=== PATIENT | female | born 1995 | race Caucasian/White ===

== ENCOUNTER 2016-07-28 19:29 | Emergency (ER) | payer BC ==
[2016-07-28] MEDS ORDERED: Famotidine IV* 10 MG/ML 2 ML (20 mg) IV ONE (19:35)
[2016-07-28] MEDS ORDERED: methylPREDNISolone 125 MG* 2 ML VIAL IV ONE (19:35)
[2016-07-28] MEDS ORDERED: diPHENhydraMINE IV* 50 MG/ML 1 ml VIAL (BENADRYL) IV ONE (19:35)
[2016-07-28] MEDS ORDERED: NS 0.9% 1000 ML* 1,000 ML IV SCH (19:45)
[2016-07-28] MEDS ORDERED: Famotidine TAB* 20 MG PO ONE (21:34)
[2016-07-28] MEDS ORDERED: predniSONE TAB* 20 MG PO ONE (21:34)
--- NOTE | 2016-07-28 21:42 | ED ---
Latasha Morgan Salem, scribed for Arya Farrell MD on 07/28/16 at 1951 . Allergic Reaction/Systemic - HPI Summary HPI Summary: Patient is a 20 y/o female who presents to the ED per EMS s/p an allergic reaction to peanuts at approximately 1700. She reports hives, dyspnea, and near syncope beginning around 1800. She states she took 20mL of Benadryl with little alleviation and then received an epinephrine injected into her right leg. EMS denies giving pt any additional medication on route. - History of Current Complaint Chief Complaint: EDAllergicReaction Time Seen by Provider: 07/28/16 19:31 Hx Obtained From: Patient, EMS Onset/Duration: Gradual Onset, Started hours ago, Still Present Timing: Constant Severity Initially: Moderate Severity Currently: Moderate Pain Intensity: 0 Pain Scale Used: 0-10 Numeric Location: Diffuse Character: Swelling, Hives Aggravating Factor(s): Other - Peanuts. Alleviating Factor(s): Antihistamines, Epinephrine Associated Signs And Symptoms: Positive: Negative - Allergies/Home Medications Allergies/Adverse Reactions: Allergies Allergy/AdvReac Type Severity Reaction Status Date / Time Peanut Oil Allergy Anaphylatic Verified 07/28/16 20:03 Shock Peanut-containing Drug Allergy Anaphylatic Verified 07/28/16 20:03 Products Shock chick peas Allergy Hives Uncoded 07/28/16 20:03 peas Allergy Hives Uncoded 07/28/16 20:03 PMH/Surg Hx/FS Hx/Imm Hx Previously Healthy: Yes Infectious Disease History: No Infectious Disease History: Denies: Traveled Outside the [place] in Last 30 Days - Family History Known Family History: Positive: Other - Asthma. - Social History Alcohol Use: None Hx Substance Use: No Substance Use Type: Reports: None Hx Tobacco Use: No Smoking Status (MU): Never Smoked Tobacco Review of Systems Positive: Other - Hives. . Negative: Fever Neurological: Other - Near syncope. All Other Systems Reviewed And Are Negative: Yes Physical Exam Triage Information Reviewed: Yes Vital Signs On Initial Exam: Initial Vitals Temp Pulse Resp BP Pulse Ox 99.0 F 98 15 123/73 100 07/28/16 19:42 07/28/16 19:42 07/28/16 19:42 07/28/16 19:42 07/28/16 19:42 Vital Signs Reviewed: Yes Appearance: Positive: Well-Appearing, No Pain Distress Skin: Positive: Warm, Skin Color Reflects Adequate Perfusion, Dry Head/Face: Positive: Normal Head/Face Inspection Eyes: Positive: EOMI, DIMPLE ENT: Positive: Normal ENT inspection Neck: Positive: Supple, Nontender Respiratory/Lung Sounds: Positive: Clear to Auscultation, Breath Sounds Present Cardiovascular: Positive: RRR Abdomen Description: Positive: Nontender, Soft Bowel Sounds: Positive: Present Musculoskeletal: Positive: Normal, Strength/ROM Intact Neurological: Positive: Normal, Sensory/Motor Intact, Alert, Oriented to Person Place, Time Psychiatric: Positive: Affect/Mood Appropriate Diagnostics - Vital Signs Vital Signs Temp Pulse Resp BP Pulse Ox 07/28/16 19:42 99.0 F 98 15 123/73 100 - Laboratory Lab Statement: Any lab studies that have been ordered have been reviewed, and results considered in the medical decision making process. Re-Evaluation - Re-Evaluation First Eval Re-Evaluation Time: 21:02 Change: Improved Comment: Pt states she feels good. Second Eval Re-Evaluation Time: 21:35 Comment: Informed pt of plan. Allergic Reaction Course/Dx - Course Course Of Treatment: NO CRITICAL CARE TIME Assessment/Plan: WELL IN ED. DISCHARGE HOME STABLE. - Diagnoses Provider Diagnoses: Allergic reaction Discharge - Discharge Plan Condition: Stable Disposition: HOME Prescriptions: Epinephrine [Epipen 2-Honorio] 0.3 mg IM ONCE PRN #1 inj PRN Reason: Allergy Symptoms Famotidine TAB* [Pepcid 20 MG TAB*] 20 mg PO BID PRN #8 tab PRN Reason: Allergy Symptoms predniSONE TAB* [Deltasone TAB*] 40 mg PO DAILY PRN #8 tab PRN Reason: Allergy Symptoms Patient Education Materials: Anaphylaxis (ED), General Allergic Reaction (ED) Referrals: [facility] [Primary Care Provider] - Additional Instructions: FOLLOW UP WITH MEERA. TAKE BENADRYL 50MG EVERY 6 HOURS NEEDED. TAKE PEPCID AND PREDNISONE DIRECTED NEEDED. RETURN TO THE EMERGENCY DEPARTMENT FOR ANY WORSENING OF YOUR CONDITION; DIFFICULTY SWALLOWING OR BREATHING, YOU FEEL ILL OR QUESTIONS OR CONCERNS. The documentation as recorded by the Latasha russell Salem accurately reflects the service I personally performed and the decisions made by , Arya Farrell MD.
[2016-07-29 04:39] VITALS: BP 120/75
== END 2016-07-28 22:10 | disposition home or self-care (01) ==
LOC: ED 19:29
DX: T78.1XXA Other adverse food reactions, not elsewhere classified, initial encounter (principal); T78.40XA Allergy, unspecified, initial encounter; X58.XXXA Exposure to other specified factors, initial encounter; L50.9 Urticaria, unspecified; R06.00 Dyspnea, unspecified; R55 Syncope and collapse
CPT/HCPCS: 96374; 96375; 99282; A9270-GY; J1200; J2930; J7512

== ENCOUNTER 2017-11-12 19:00 | Emergency (ER) | payer BC ==
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
[2017-11-12 21:58] VITALS: BP 137/84
== END 2017-11-12 21:57 | disposition home or self-care (01) ==
LOC: ED 19:00
DX: S09.90XA Unspecified injury of head, initial encounter (principal); V49.60XA Unspecified car occupant injured in collision with unspecified motor vehicles in traffic accident, initial encounter; Y93.89 Activity, other specified; Y92.410 Unspecified street and highway as the place of occurrence of the external cause; R68.84 Jaw pain; Z91.010 Allergy to peanuts; Z91.018 Allergy to other foods
CPT/HCPCS: 70450; 70486; 99281

== ENCOUNTER 2017-11-23 19:10 | Emergency (ER) | payer BC ==
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
[2017-11-23 20:35] VITALS: BP 105/61
== END 2017-11-23 20:33 | disposition home or self-care (01) ==
LOC: ED 19:10
DX: F41.9 Anxiety disorder, unspecified (principal)
CPT/HCPCS: 99281

== ENCOUNTER 2018-01-04 22:24 | Emergency (ER) | payer BC ==
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
[2018-01-04 23:11] LABS: ABS Basophils 0.1 10^3/ul (0-0.2); ABS Eosinophils 0.2 10^3/ul (0-0.6); ABS Lymphocytes 2.1 10^3/ul (1.0-4.8); ABS Monocytes 0.9 10^3/ul (0-0.8); ABS Neutrophils 6.6 10^3/ul (1.5-7.7); ABS Nucleated RBC 0 10^3/ul; Eosinophil % 1.6 % (0-6); Hematocrit 39 % (35-47); Hemoglobin 13.2 g/dl (12.0-16.0); Lymphocyte % 21.6 % (25-47); Mean Corpuscular HGB Conc 34 g/dl (31-36); Mean Corpuscular Hemoglobin 32 pg (27-31); Mean Corpuscular Volume 95 fL (80-97); Mean Platelet Volume 7.4 um3 (7.4-10.4); Nucleated Red Blood Cells % 0.1; Platelet Count 295 10^3/ul (150-450); Red Blood Count 4.07 10^6/ul (4.00-5.40); Red Cell Distribution Width 13 % (10.5-15); White Blood Count 9.8 10^3/ul (3.5-10.8)
[2018-01-04 23:28] LABS: EGFR Non-African American 83.3 (>60)
[2018-01-05 00:09] VITALS: BP 130/78
== END 2018-01-05 00:07 | disposition home or self-care (01) ==
LOC: ED 22:24
DX: R53.1 Weakness (principal); R42 Dizziness and giddiness; R53.83 Other fatigue; R00.2 Palpitations; R31.9 Hematuria, unspecified
CPT/HCPCS: 36415; 80053; 84702; 85025; 99282